=== PATIENT | female | born 1945 | race Caucasian/White ===

== ENCOUNTER 2024-04-25 09:20 | Day surgery (SDC) | payer MEDICARE | END 2024-04-25 11:00 | disposition home or self-care (01) | LOC: SDC-PAIN 09:20 | PROVIDERS: ATTEND Psychiatry & Neurology Pain Medicine | DX: Z53.8 Procedure and treatment not carried out for other reasons (principal); E11.9 Type 2 diabetes mellitus without complications | CPT/HCPCS: 82947 ==